=== PATIENT | female | born 1965 | race African-American/Black ===

== ENCOUNTER 2017-01-27 18:49 | Emergency (ER) | payer OTHER ==
[~2017-01-27] VITALS: Ht 167.6 cm; Wt 81.0 kg
[2017-01-27] MEDS ORDERED: MORPHINE SULFATE 10 MG/ML CPJ IM ONE (22:30)
[2017-01-27] MEDS ORDERED: KETOROLAC 60MG/2ML VIAL IM ONE (22:30)
[2017-01-27 23:30] VITALS: BP 156/89
== END 2017-01-28 00:20 | disposition home or self-care (01) ==
LOC: ER 20:35
DX: M54.5 Low back pain (principal); I10 Essential (primary) hypertension; F17.200 Nicotine dependence, unspecified, uncomplicated
CPT/HCPCS: 96372; 99284; J1885; J2270; Z7610

== ENCOUNTER 2021-09-25 19:26 | Inpatient (IN) | payer OTHER ==
[~2021-09-25] VITALS: Ht 170.2 cm; Wt 88.5 kg
[2021-09-25 20:54] LABS: BASOPHILS % 0.3 % (0.0-2.0); EOSINOPHILS % 5.3 % (0.0-5.0); HEMATOCRIT. 29.5 % (36.0-48.0); HEMOGLOBIN. 10.1 g/dL (12.0-16.0); LYMPHOCYTES % 26.8 % (20.0-50.0); MEAN CORPUSCULAR HEMOGLOBIN 30.2 pg (28.0-32.0); MEAN CORPUSCULAR VOLUME 88.4 fL (81.0-99.0); MEAN PLATELET VOLUME 8.5 fl (7.4-10.4); MONOCYTES % 8.1 % (2.0-8.0); NEUTROPHILS % 59.5 % (40.0-76.0); PLATELET 352 x1000/uL (130-400); RED BLOOD CELL COUNT 3.33 mill/uL (4.2-5.4); RED CELL DISTRIBUTION WIDTH 13.6 % (11.6-14.6)
[2021-09-25 21:07] LABS: CHLORIDE 104 mEq/L (98-107)
[2021-09-25 21:10] LABS: D-DIMER 5.8 mg/L FEU (<0.50); PARTIAL THROMBOPLASTIN TIME 27.1 sec (23.4-31.0); PROTHROMBIN TIME 10.7 sec (9.6-11.0)
[2021-09-25] MEDS ORDERED: HEPARIN 5000 UNITS/ML VIAL IV ONE (21:30)
[2021-09-25] MEDS ORDERED: HEPARIN 25,000 UNITS PREMIX 250 ML IV SCH ×3 (21:30→23:34)
[2021-09-25] MEDS ORDERED: SODIUM CHLORIDE 0.9% 1,000 ML IV ONE (21:45)
[2021-09-25] MEDS ORDERED: HEPARIN 80 UNITS/KG BOLUS IV NR (22:34)
[2021-09-25 23:41] LABS: CLARITY URINE CLEAR (CLEAR); COLOR URINE YELLOW (YELLOW); KETONES URINE NEGATIVE (NEGATIVE); LEUKOCYTE ESTERASE URINE TRACE (NEGATIVE); NITRITE URINE NEGATIVE (NEGATIVE); OCCULT BLOOD URINE NEGATIVE (NEGATIVE); PH URINE 5.5 (4.5-8.0); PROTEIN URINE TRACE (NEGATIVE); SPECIFIC GRAVITY URINE 1.053 (1.005-1.030)
[2021-09-26] MEDS ORDERED: HEPARIN BOLUS PRN aPTT <36 IV (05:00)
[2021-09-26] MEDS ORDERED: HEPARIN BOLUS PRN aPTT 37-44 IV (05:00)
[2021-09-26] MEDS ORDERED: IOHEXOL-350 100 ML BOTTLE ONE (05:37)
[2021-09-26] MEDS ORDERED: IPRATROPIUM/ALBUTEROL 0.5-3(2.5)MG/3ML NEB NEB PRN (07:00)
[2021-09-26] MEDS ORDERED: ONDANSETRON HCL 4MG/2ML INJ IV PRN (07:00)
[2021-09-26] MEDS ORDERED: NA PHOS,M-B/NA PHOS,DI-BA ENEMA 118ML PR PRN (07:00)
[2021-09-26] MEDS ORDERED: MAGNESIUM/ALUMINUM HYDROXIDE/SIMETHICONE 30ML UDC PO PRN (07:00)
[2021-09-26] MEDS ORDERED: NITROGLYCERIN 0.4MG TABLET SL SL PRN (07:00)
[2021-09-26] MEDS ORDERED: DOCUSATE SODIUM 100MG CAPSULE PO PRN (07:00)
[2021-09-26] MEDS ORDERED: CLONIDINE 0.1MG TABLET PO PRN (07:00)
[2021-09-26] MEDS ORDERED: GUAIFENESIN 200MG/10ML SUGAR FREE UDC PO PRN (07:00)
[2021-09-26] MEDS ORDERED: TRAMADOL 50MG TABLET PO PRN (07:00)
[2021-09-26] MEDS ORDERED: ACETAMINOPHEN 325MG TABLET PO PRN ×2 (07:00)
[2021-09-26] MEDS ORDERED: LEVOFLOXACIN 500MG PREMIX 100 ML IV SCH ×2 (08:00→14:00)
[2021-09-26 08:54] LABS: CHLORIDE 105 mEq/L (98-107)
[2021-09-26 09:12] LABS: HDL CHOLESTEROL 42 mg/dL (40-59); LDL CHOLESTEROL 104 mg/dL (5-100); TOTAL IRON BINDING CAPACITY 255 ug/dL (250-450)
[2021-09-26 09:40] VITALS: BP 105/53
[2021-09-26] MEDS: ASPIRIN 325MG EC TABLET PO SCH (11:28)
[2021-09-26] MEDS: FAMOTIDINE 20MG TABLET PO SCH ×2 (11:28→20:16)
[2021-09-26] MEDS: ENOXAPARIN 40MG/0.4ML SYR SUBCUT SCH (11:29)
[2021-09-26] MEDS: METHYLPREDNISOLONE SOD SUCC 125 MG/2 ML VIAL IV SCH ×2 (14:00→20:16)
[2021-09-26] MEDS ORDERED: POTASSIUM CHLORIDE 20MEQ/PACKET PO NR (16:45)
[2021-09-26 18:39] LABS: FOLIC ACID (FOLATE) SERUM 7.5 ng/mL (>5.38)
[2021-09-26] MEDS: GUAIFENESIN/DM 600MG/30MG ER TAB 12HR PO SCH (20:16)
[2021-09-26 20:29] LABS: CREATINE KINASE 97 IU/L (26-192); CREATINE KINASE MB FRACTION < 1.0 ng/mL (0.5-3.6)
[2021-09-26] MEDS ORDERED: ZOLPIDEM TARTRATE 5MG TABLET PO PRN (21:00)
[2021-09-26] MEDS ORDERED: MELO-106 PO (21:45)
[2021-09-26] MEDS ORDERED: HYDR100T26 PO (21:45)
[2021-09-26] MEDS ORDERED: GABA300S PO (21:45)
[2021-09-26] MEDS ORDERED: ATEN100T MT (21:45)
[2021-09-26] MEDS ORDERED: AMLO10TA80 MT (21:45)
[2021-09-26] MEDS ORDERED: DOCU250C69 PO (21:45)
[2021-09-26] MEDS ORDERED: OXYC-662 GT (21:45)
[2021-09-26] MEDS ORDERED: ASPI-1497 MT (21:45)
[2021-09-26] MEDS ORDERED: LISI40TA13 MT (21:45)
[2021-09-26] MEDS ORDERED: ONDA4TAB50 PO (21:45)
[2021-09-27] VITALS: BP 113/48
[2021-09-27 02:11] LABS: CREATINE KINASE 87 IU/L (26-192); CREATINE KINASE MB FRACTION < 1.0 ng/mL (0.5-3.6)
[2021-09-27 04:00] VITALS: BP 116/48
[2021-09-27] MEDS: METHYLPREDNISOLONE SOD SUCC 125 MG/2 ML VIAL IV SCH ×3 (06:09→21:32)
[2021-09-27 07:43] LABS: BASOPHILS % 0.2 % (0.0-2.0); EOSINOPHILS % 7.2 % (0.0-5.0); HEMATOCRIT. 25.9 % (36.0-48.0); LYMPHOCYTES % 28.1 % (20.0-50.0); MEAN CORPUSCULAR HEMOGLOBIN 30.5 pg (28.0-32.0); MEAN CORPUSCULAR VOLUME 88.2 fL (81.0-99.0); MEAN PLATELET VOLUME 8.5 fl (7.4-10.4); MONOCYTES % 8.2 % (2.0-8.0); NEUTROPHILS % 56.3 % (40.0-76.0); PLATELET 301 x1000/uL (130-400); RED BLOOD CELL COUNT 2.94 mill/uL (4.2-5.4); RED CELL DISTRIBUTION WIDTH 13.6 % (11.6-14.6)
[2021-09-27 07:58] LABS: CHLORIDE 108 mEq/L (98-107)
[2021-09-27 08:00] VITALS: BP 124/57
[2021-09-27 08:05] LABS: PHOSPHORUS 2.9 mg/dL (2.5-4.9)
[2021-09-27] MEDS: ASPIRIN 325MG EC TABLET PO SCH (09:25)
[2021-09-27] MEDS: GUAIFENESIN/DM 600MG/30MG ER TAB 12HR PO SCH ×2 (09:25→21:31)
[2021-09-27] MEDS: FAMOTIDINE 20MG TABLET PO SCH ×2 (09:25→21:31)
[2021-09-27] MEDS: ENOXAPARIN 40MG/0.4ML SYR SUBCUT SCH (09:26)
[2021-09-27 12:00] VITALS: BP 126/58
[2021-09-27] MEDS: LEVOFLOXACIN 500MG TABLET PO SCH (12:27)
[2021-09-27 16:00] VITALS: BP 137/64
[2021-09-27 20:00] VITALS: BP 134/68
[2021-09-28] VITALS: BP 131/68
[2021-09-28] MEDS: IPRATROPIUM/ALBUTEROL 0.5-3(2.5)MG/3ML NEB HHN SCH ×5 (00:35→17:23)
[2021-09-28 04:00] VITALS: BP 128/72
[2021-09-28] MEDS: KETOROLAC 15MG/ML VIAL IV PRN ×2 (04:38→13:46)
[2021-09-28] MEDS: METHYLPREDNISOLONE SOD SUCC 125 MG/2 ML VIAL IV SCH ×2 (05:01→13:30)
[2021-09-28 08:00] VITALS: BP_SYST 144; BP_SYST 177; BP_DIAS 70
[2021-09-28] MEDS: FAMOTIDINE 20MG TABLET PO SCH (08:25)
[2021-09-28] MEDS: ENOXAPARIN 40MG/0.4ML SYR SUBCUT SCH (08:25)
[2021-09-28] MEDS: ASPIRIN 325MG EC TABLET PO SCH (08:25)
[2021-09-28] MEDS: GUAIFENESIN/DM 600MG/30MG ER TAB 12HR PO SCH (08:27)
[2021-09-28 12:00] VITALS: BP 138/72
[2021-09-28] MEDS: LEVOFLOXACIN 500MG TABLET PO SCH (12:18)
[2021-09-28] MEDS ORDERED: NALOXONE HCL 0.4MG/ML VIAL IV PRN (15:45)
[2021-09-28 15:55] VITALS: BP 136/74
[2021-09-28 18:03] VITALS: BP 136/74
== END 2021-09-28 20:10 | disposition short-term general hospital (02) | DRG 189 ==
LOC: ER 19:26 → 8WST 09-26 00:23 → ENRESERV 09-26 07:51 → 8WST 09-26 11:23
PROVIDERS: ADMIT Internal Medicine; ATTEND Internal Medicine
DX: J96.01 Acute respiratory failure with hypoxia (principal); J44.1 Chronic obstructive pulmonary disease with (acute) exacerbation; Z96.653 Presence of artificial knee joint, bilateral; I10 Essential (primary) hypertension; E87.6 Hypokalemia; Z20.822 Contact with and (suspected) exposure to COVID-19; Z87.891 Personal history of nicotine dependence
CPT/HCPCS: 36415; 71045; 71275; 80048; 80053; 80061; 81003; 82550; 82553; 82607; 82746; 83036; 83540; 83550; 83605; 83735; 83880; 84100; 84145; 84439; 84443; 84484; 85025; 85379; 87426; 93005; 93306; 93970; 94640; 99291; C9803; J1644; J1650; J1885; J1956; J2930; J7030; Q9967